=== PATIENT | female | born 1960 | race African-American/Black ===

== ENCOUNTER 2016-10-15 14:30 | Inpatient (IN) | payer MEDICARE, OTHER ==
[~2016-10-15] VITALS: Ht 154.9 cm; Wt 90.4 kg
[~2016-10-15 14:30] MED LIST: ACYC400T PO; ASPI-482 PO; CELE200C PO; CITA40TA12 PO; HYDR-210 PO; PHEN100C PO
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
[2016-10-15 19:15] VITALS: BP 129/87
[2016-10-15] MEDS ORDERED: CYCL-331 PO (19:29)
[2016-10-15] MEDS ORDERED: ACETAMINOPHEN 325 MG TABLET PO PRN (19:45)
[2016-10-15] MEDS: PHENYTOIN SODIUM EXTENDED 100 MG CAPSULE PO SCH (21:37)
[2016-10-15] MEDS: CELECOXIB 200 MG CAPSULE PO SCH (21:37)
[2016-10-15] MEDS: CYCLOBENZAPRINE 10 MG TABLET. PO SCH (21:37)
[2016-10-15 23:15] LABS: BACTERIA,URINE FEW /HPF (0-FEW); BILIRUBIN,URINE NEG (NEG); CLARITY,URINE CLEAR; COLOR,URINE YELLOW; GLUCOSE,URINE NEG (NEG); NITRITE,URINE NEG (NEG); RBC,URINE 0 /HPF (0-2); SQUAMOUS EPITHELIAL CELL,UR FEW /LPF; UROBILINOGEN,URINE 0.2 mg/dL (0.2 mg/dL); WBC,URINE OCC /HPF (0-4)
[2016-10-15 23:23] VITALS: BP 122/65
[2016-10-16 04:59] VITALS: BP 121/80
[2016-10-16 07:29] LABS: BASO % 1 % (0-3); EOS # 0.1 x10^3/uL (0.0-0.7); EOS % 3 % (0-3); HEMATOCRIT 35.8 % (36.0-47.0); HEMOGLOBIN 11.9 g/dL (12.0-15.5); LYMPH # 1.8 x10^3/uL (1.0-4.8); LYMPH % 48 % (24-48); MEAN CORPUSCULAR HEMOGLOBIN 30 pg (25-35); MEAN CORPUSCULAR HGB CONC 33 g/dL (31-37); MEAN CORPUSCULAR VOLUME 90 fL (79-100); MONO # 0.5 x10^3/uL (0.0-1.1); MONO % 14 % (0-9); NEUT # 1.3 x10^3uL (1.8-7.7); NEUT % 35 % (31-73); PLATELET COUNT 187 x10^3/uL (140-400); RED BLOOD COUNT 3.97 x10^6/uL (3.50-5.40); RED CELL DISTRIBUTION WIDTH 13.4 % (11.5-14.5); WHITE BLOOD COUNT 3.8 x10^3/uL (4.0-11.0)
[2016-10-16 07:38] LABS: ALBUMIN 3.3 g/dL (3.4-5.0); CALCIUM 8.4 mg/dL (8.5-10.1); CREATININE 0.6 mg/dL (0.6-1.0); GFR 125.1; POTASSIUM 3.4 mmol/L (3.5-5.1); TOTAL BILIRUBIN 0.2 mg/dL (0.2-1.0); TOTAL PROTEIN 6.7 g/dL (6.4-8.2)
[2016-10-16] MEDS: ASPIRIN ENTERIC COATED 81 MG TABLET.DR. PO SCH (08:20)
[2016-10-16] MEDS: CYCLOBENZAPRINE 10 MG TABLET. PO SCH ×3 (08:20→20:33)
[2016-10-16] MEDS: HYDROcodone/APAP 5/325MG 1 TAB TABLET PO PRN (08:20)
[2016-10-16] MEDS: PHENYTOIN SODIUM EXTENDED 100 MG CAPSULE PO SCH ×4 (08:20→20:33)
[2016-10-16] MEDS: CELECOXIB 200 MG CAPSULE PO SCH ×2 (08:20→20:33)
[2016-10-16 15:46] VITALS: BP 127/77
[2016-10-16 19:18] VITALS: BP 114/76
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
[2016-10-17 05:27] VITALS: BP 103/69
[2016-10-17 06:18] LABS: BASO % 1 % (0-3); EOS # 0.2 x10^3/uL (0.0-0.7); EOS % 4 % (0-3); HEMATOCRIT 34.6 % (36.0-47.0); HEMOGLOBIN 11.6 g/dL (12.0-15.5); LYMPH # 2.2 x10^3/uL (1.0-4.8); LYMPH % 51 % (24-48); MEAN CORPUSCULAR HEMOGLOBIN 30 pg (25-35); MEAN CORPUSCULAR HGB CONC 34 g/dL (31-37); MEAN CORPUSCULAR VOLUME 90 fL (79-100); MONO # 0.6 x10^3/uL (0.0-1.1); MONO % 13 % (0-9); NEUT # 1.4 x10^3uL (1.8-7.7); NEUT % 32 % (31-73); PLATELET COUNT 190 x10^3/uL (140-400); RED BLOOD COUNT 3.86 x10^6/uL (3.50-5.40); RED CELL DISTRIBUTION WIDTH 13.7 % (11.5-14.5); WHITE BLOOD COUNT 4.4 x10^3/uL (4.0-11.0)
[2016-10-17 06:20] LABS: CALCIUM 8.5 mg/dL (8.5-10.1); CREATININE 0.6 mg/dL (0.6-1.0); GFR 125.1; POTASSIUM 3.9 mmol/L (3.5-5.1)
[2016-10-17] MEDS: HYDROcodone/APAP 5/325MG 1 TAB TABLET PO PRN ×2 (08:08→19:45)
[2016-10-17] MEDS: CYCLOBENZAPRINE 10 MG TABLET. PO SCH ×3 (08:47→20:45)
[2016-10-17] MEDS: ASPIRIN ENTERIC COATED 81 MG TABLET.DR. PO SCH (08:48)
[2016-10-17] MEDS: PHENYTOIN SODIUM EXTENDED 100 MG CAPSULE PO SCH ×4 (08:48→20:45)
[2016-10-17] MEDS: CELECOXIB 200 MG CAPSULE PO SCH ×2 (08:48→20:45)
[2016-10-17 11:35] VITALS: BP 111/73
--- NOTE | 2016-10-17 14:33 | OP ---
DATE OF SURGERY: 10/17/2016 INDICATIONS: The patient is still having trouble walking, tremendous weakness in that right leg. The patient otherwise is resting fairly comfortably, making fairly good progress, but still receiving physical and occupational therapy. The patient's labs showed some chronic anemia. Otherwise, she is resting fairly comfortably, making fairly good progress overall. We will continue to monitor the patient with physical and occupational therapy. Consider sending her to the skilled unit. PHYSICAL EXAMINATION: Blood pressure 110/70, respiratory rate 20, pulse 60, afebrile, alert and oriented. Lungs, diminished but clear. CVR exam, regular sinus rhythm, soft. The patient still has marked contractures as noted earlier in the H and P and also weakness in that right leg and some difficulty in talking. Very tearful about going to a longterm. IMPRESSION: Generalized weakness, probable extension of stroke activity with generalized weakness increased in her right arm and right leg with contractures. TERELL ADAME MD DR: ELKE/yaneli JOB#: [id number] / [id number]
[2016-10-17 15:34] VITALS: BP 115/73
[2016-10-17 18:53] VITALS: BP 125/62
[2016-10-18 05:44] VITALS: BP 103/68
[2016-10-18] MEDS: CYCLOBENZAPRINE 10 MG TABLET. PO SCH ×3 (09:26→20:04)
[2016-10-18] MEDS: CELECOXIB 200 MG CAPSULE PO SCH ×2 (09:26→20:04)
[2016-10-18] MEDS: PHENYTOIN SODIUM EXTENDED 100 MG CAPSULE PO SCH ×4 (09:26→20:04)
[2016-10-18] MEDS: ASPIRIN ENTERIC COATED 81 MG TABLET.DR. PO SCH (09:26)
[2016-10-18 11:05] VITALS: BP 112/69
[2016-10-18 19:05] VITALS: BP 127/60
[2016-10-18 22:34] VITALS: BP 115/71
--- NOTE | 2016-10-18 23:00 | PN ---
DATE: 10/18/2016 SUBJECTIVE: The patient is still very weak, still having trouble mobilizing. We will swing her to the swing bed tomorrow. OBJECTIVE: VITAL SIGNS: Blood pressure 100/70, respiratory rate 20, pulse 110, afebrile. GENERAL: The patient is alert and oriented to baseline. LUNGS: Diminished, but clear. CARDIOVASCULAR: Stable. NEUROLOGIC: The patient still with the right arm contracture as well. The patient otherwise seems to be resting fairly comfortably, making fairly good progress overall. PLAN: Continue with PT, OT, and make further evaluation on her as indicated. IMPRESSION: Generalized weakness, CVA, probable extension with right-sided hemiparesis. TERELL ADAME MD DR: ELKE/yaneli JOB#: [id number] / [id number]
[2016-10-19 05:24] VITALS: BP 108/70
[2016-10-19] MEDS: CYCLOBENZAPRINE 10 MG TABLET. PO SCH (08:59)
[2016-10-19] MEDS: CELECOXIB 200 MG CAPSULE PO SCH (08:59)
[2016-10-19] MEDS: ASPIRIN ENTERIC COATED 81 MG TABLET.DR. PO SCH (08:59)
[2016-10-19] MEDS: PHENYTOIN SODIUM EXTENDED 100 MG CAPSULE PO SCH (08:59)
[2016-10-19] MEDS: HYDROcodone/APAP 5/325MG 1 TAB TABLET PO PRN (09:00)
[2016-10-19] MEDS ORDERED: ACET325T9 PO (09:20)
--- NOTE | 2016-10-20 10:27 | RAD ---
Examination: 3 views of the right ankle and right foot History: History of pain. Comparison: Right ankle radiograph from 10/26/2014 Findings: The ankle mortise appears intact. There is mild joint space loss identified in the ankle joint. Osseous mineralization limits evaluation. Mild to moderate degenerative changes identified in the tarsometatarsal joints, metatarsophalangeal joints and interphalangeal joints. Mild soft tissue swelling identified in the medial hindfoot region. Examination limited due to positioning (patient would not cooperate for positioning of the foot). Probable old healed fracture of the distal fifth metatarsal. Impression: 1. No acute osseous findings. 2. Mild soft tissue swelling medial hindfoot. 3. Degenerative changes ankle joint, tarsal joints, metatarsophalangeal joints, interphalangeal joints. MTDD
--- NOTE | 2016-11-17 12:10 | PN ---
DATE: 10/17/2016 INDICATIONS: The patient is still having trouble walking, tremendous weakness in that right leg. The patient otherwise is resting fairly comfortably, making fairly good progress, but still receiving physical and occupational therapy. The patient's labs showed some chronic anemia. Otherwise, she is resting fairly comfortably, making fairly good progress overall. We will continue to monitor the patient with physical and occupational therapy. Consider sending her to the skilled unit. PHYSICAL EXAMINATION: Blood pressure 110/70, respiratory rate 20, pulse 60, afebrile, alert and oriented. Lungs, diminished but clear. CVR exam, regular sinus rhythm, soft. The patient still has marked contractures as noted earlier in the H and P and also weakness in that right leg and some difficulty in talking. Very tearful about going to a jail. IMPRESSION: Generalized weakness, probable extension of stroke activity with generalized weakness increased in her right arm and right leg with contractures. TERELL ADAME MD DR: ELKE/yaneli JOB#: [id number] / [id number]
== END 2016-10-19 11:01 | disposition swing bed (61) | DRG 57 ==
LOC: ER 14:30 → 1 SOUTH 15:12 → OBSVTOIN 10-16 11:02
PROVIDERS: ADMIT Family Medicine; ATTEND Family Medicine
DX: I69.351 Hemiplegia and hemiparesis following cerebral infarction affecting right dominant side (principal); I10 Essential (primary) hypertension; D64.9 Anemia, unspecified; E87.6 Hypokalemia; R26.2 Difficulty in walking, not elsewhere classified
CPT/HCPCS: 36415; 73610; 80048; 80053; 81001; 82947; 85027; 85379; 85651; 87086; G0378; G0379; 97116; 97530; 99285-25

== ENCOUNTER 2016-10-19 11:05 | Inpatient (IN) | payer MEDICARE, OTHER ==
[~2016-10-19] VITALS: Ht 154.9 cm; Wt 92.8 kg
[~2016-10-19 11:05] MED LIST changes: +ACET325T9 PO; +CYCL-331 PO
[2016-10-19] MEDS ORDERED: ACETAMINOPHEN 325 MG TABLET PO PRN (12:45)
[2016-10-19] MEDS: CYCLOBENZAPRINE 10 MG TABLET. PO SCH ×2 (13:23→20:11)
[2016-10-19] MEDS: PHENYTOIN SODIUM EXTENDED 100 MG CAPSULE PO SCH ×3 (13:23→20:11)
[2016-10-19 18:30] VITALS: BP 145/78
[2016-10-19] MEDS: CELECOXIB 200 MG CAPSULE PO SCH (20:11)
[2016-10-20] MEDS: CYCLOBENZAPRINE 10 MG TABLET. PO SCH ×3 (09:00→19:06)
[2016-10-20] MEDS: PHENYTOIN SODIUM EXTENDED 100 MG CAPSULE PO SCH ×4 (09:00→19:06)
[2016-10-20] MEDS: CELECOXIB 200 MG CAPSULE PO SCH ×2 (09:00→19:06)
[2016-10-20] MEDS: ASPIRIN ENTERIC COATED 81 MG TABLET.DR. PO SCH (09:00)
[2016-10-20] MEDS: HYDROcodone/APAP 7.5/325MG 1 TAB TABLET PO SCH (09:00)
[2016-10-20 09:15] VITALS: BP 125/66
[2016-10-20 19:24] VITALS: BP 134/83
[2016-10-20] MEDS ORDERED: MAGNESIUM HYDROXIDE 2,400 MG/30 ML ORAL.SUSP. PO ONE (20:00)
[2016-10-21 05:43] VITALS: BP 102/53
[2016-10-21] MEDS: CELECOXIB 200 MG CAPSULE PO SCH ×2 (08:16→20:07)
[2016-10-21] MEDS: PHENYTOIN SODIUM EXTENDED 100 MG CAPSULE PO SCH ×4 (08:16→20:07)
[2016-10-21] MEDS: ASPIRIN ENTERIC COATED 81 MG TABLET.DR. PO SCH (08:17)
[2016-10-21] MEDS: HYDROcodone/APAP 7.5/325MG 1 TAB TABLET PO SCH (08:17)
[2016-10-21] MEDS: CYCLOBENZAPRINE 10 MG TABLET. PO SCH ×3 (08:17→20:07)
[2016-10-21 19:43] VITALS: BP 145/72
--- NOTE | 2016-10-21 20:09 | PDOC ---
Exam Octaviano Demential Exam: Octaviano Note: Please also refer to the separate dictated note~for this date of service dictated separately.~Patient seen individually. Discussed the patient with Nursing staff reviewed the chart.~Reviewed interim history and current functioning. Reviewed vital signs,~Labs/ Radiology~and current medications noted below. Continue current treatment with the changes noted in the dictated addendum note Assessment: Vital Signs: Vital Signs Date Time Temp Pulse Resp B/P (MAP) Pulse Ox O2 Delivery O2 Flow Rate FiO2 10/21/16 19:43 97.5 79 16 145/72 (96) 98 Room Air I&O Intake and Output 10/21/16 07:00 Intake Total 120 ml Balance 120 ml Intake Oral 120 ml # Voids 7 Current Medications: Meds: Current Medications Acetaminophen (Tylenol) 650 mg PRN Q6HRS PRN PO Headaches, Temp > 101.5F; Start 10/19/16 at 12:45 Aspirin (Aspirin Enteric Coated) 81 mg DAILY PO Last administered on 10/21/16 08:17; Start 10/20/16 at 09:00 Celecoxib (CeleBREX) 200 mg BID PO Last administered on 10/21/16 20:07; Start 10/19/16 at 21:00 Cyclobenzaprine HCl (Flexeril) 10 mg TID PO Last administered on 10/21/16 20: 07; Start 10/19/16 at 14:00 Phenytoin Sodium (Dilantin) 100 mg QID PO Last administered on 10/21/16 20:07 ; Start 10/19/16 at 13:00 Acetaminophen/ Hydrocodone Bitart (Lortab 7.5/325) 1 tab DAILY PO Last administered on 10/21/16 08:17; Start 10/20/16 at 09:00 Magnesium Hydroxide (Milk Of Magnesia) 2,400 mg 1X ONCE PO Last administered on 10/20/16 19:34; Start 10/20/16 at 20:00; Stop 10/20/16 at 20:01; Status DC Active Scripts Active Tylenol (Acetaminophen) 325 Mg Tablet 650 Mg PO PRN Q6HRS PRN Reported Cyclobenzaprine Hcl 10 Mg Tablet 1 Tab PO TID last dose this am next dose this afternoon Aspir 81 (Aspirin) 81 Mg Tablet.dr 81 Mg PO DAILY last dose this am next dose tomorrow am Lortab 7.5-500 Tablet (Hydrocodone Bit/Acetaminophen) 1 Each Tablet 1 Each PO DAILY last dose this am 0900 Celebrex (Celecoxib) 200 Mg Capsule 200 Mg PO BID last dose this am next dose this pm Dilantin (Phenytoin Sodium Extended) 100 Mg Capsule 100 Mg PO QID last dose this am next dose this afternoon RIDDHI HERNDON MD Oct 21, 2016 20:09
[2016-10-22 05:50] VITALS: BP 114/71
[2016-10-22] MEDS: CYCLOBENZAPRINE 10 MG TABLET. PO SCH ×3 (08:08→19:50)
[2016-10-22] MEDS: ASPIRIN ENTERIC COATED 81 MG TABLET.DR. PO SCH (08:08)
[2016-10-22] MEDS: PHENYTOIN SODIUM EXTENDED 100 MG CAPSULE PO SCH ×4 (08:08→19:50)
[2016-10-22] MEDS: CELECOXIB 200 MG CAPSULE PO SCH ×2 (08:08→19:50)
[2016-10-22] MEDS: HYDROcodone/APAP 7.5/325MG 1 TAB TABLET PO SCH (08:08)
[2016-10-22 19:28] VITALS: BP 137/86
--- NOTE | 2016-10-22 19:44 | PDOC ---
Exam Octaviano Demential Exam: Octaviano Note: Please also refer to the separate dictated note~for this date of service dictated separately.~Patient seen individually. Discussed the patient with Nursing staff reviewed the chart.~Reviewed interim history and current functioning. Reviewed vital signs,~Labs/ Radiology~and current medications noted below. Continue current treatment with the changes noted in the dictated addendum note Assessment: Vital Signs: Vital Signs Date Time Temp Pulse Resp B/P (MAP) Pulse Ox O2 Delivery O2 Flow Rate FiO2 10/22/16 19:28 98.1 87 16 137/86 (103) 98 Room Air I&O Intake and Output 10/22/16 07:00 Intake Total 300 ml Balance 300 ml Intake Oral 300 ml # Voids 5 Current Medications: Meds: Current Medications Acetaminophen (Tylenol) 650 mg PRN Q6HRS PRN PO Headaches, Temp > 101.5F; Start 10/19/16 at 12:45 Aspirin (Aspirin Enteric Coated) 81 mg DAILY PO Last administered on 10/22/16 08:08; Start 10/20/16 at 09:00 Celecoxib (CeleBREX) 200 mg BID PO Last administered on 10/22/16 08:08; Start 10/19/16 at 21:00 Cyclobenzaprine HCl (Flexeril) 10 mg TID PO Last administered on 10/22/16 12: 41; Start 10/19/16 at 14:00 Phenytoin Sodium (Dilantin) 100 mg QID PO Last administered on 10/22/16 18:39 ; Start 10/19/16 at 13:00 Acetaminophen/ Hydrocodone Bitart (Lortab 7.5/325) 1 tab DAILY PO Last administered on 10/22/16 08:08; Start 10/20/16 at 09:00 Magnesium Hydroxide (Milk Of Magnesia) 2,400 mg 1X ONCE PO Last administered on 10/20/16 19:34; Start 10/20/16 at 20:00; Stop 10/20/16 at 20:01; Status DC Escitalopram Oxalate (Lexapro) 10 mg DAILY PO ; Start 10/23/16 at 09:00 Active Scripts Active Tylenol (Acetaminophen) 325 Mg Tablet 650 Mg PO PRN Q6HRS PRN Reported Cyclobenzaprine Hcl 10 Mg Tablet 1 Tab PO TID last dose this am next dose this afternoon Aspir 81 (Aspirin) 81 Mg Tablet.dr 81 Mg PO DAILY last dose this am next dose tomorrow am Lortab 7.5-500 Tablet (Hydrocodone Bit/Acetaminophen) 1 Each Tablet 1 Each PO DAILY last dose this am 0900 Celebrex (Celecoxib) 200 Mg Capsule 200 Mg PO BID last dose this am next dose this pm Dilantin (Phenytoin Sodium Extended) 100 Mg Capsule 100 Mg PO QID last dose this am next dose this afternoon Diagnosis: Problems: (1) Acute pain RIDDHI HERNDON MD Oct 22, 2016 19:44
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
[2016-10-23 06:46] VITALS: BP 103/70
[2016-10-23] MEDS: HYDROcodone/APAP 7.5/325MG 1 TAB TABLET PO SCH (08:21)
[2016-10-23] MEDS: ASPIRIN ENTERIC COATED 81 MG TABLET.DR. PO SCH (08:21)
[2016-10-23] MEDS: PHENYTOIN SODIUM EXTENDED 100 MG CAPSULE PO SCH ×4 (08:22→20:07)
[2016-10-23] MEDS: ESCITALOPRAM 10 MG TABLET. PO SCH (08:22)
[2016-10-23] MEDS: CELECOXIB 200 MG CAPSULE PO SCH ×2 (08:22→20:07)
[2016-10-23] MEDS: CYCLOBENZAPRINE 10 MG TABLET. PO SCH ×3 (08:22→20:07)
[2016-10-23] MEDS: POLYETHYLENE GLYCOL 3350 17 GM PACKET. PO PRN (09:58)
[2016-10-23 18:56] VITALS: BP 114/77
--- NOTE | 2016-10-23 19:57 | PDOC ---
Exam Octaviano Demential Exam: Octaviano Note: Please also refer to the separate dictated note~for this date of service dictated separately.~Patient seen individually. Discussed the patient with Nursing staff reviewed the chart.~Reviewed interim history and current functioning. Reviewed vital signs,~Labs/ Radiology~and current medications noted below. Continue current treatment with the changes noted in the dictated addendum note Assessment: Vital Signs: Vital Signs Date Time Temp Pulse Resp B/P (MAP) Pulse Ox O2 Delivery O2 Flow Rate FiO2 10/23/16 18:56 97.7 92 18 114/77 (89) 97 Room Air I&O Intake and Output 10/23/16 07:00 Intake Total 200 ml Output Total 500 ml Balance -300 ml Intake Oral 200 ml Output Urine Total 500 ml # Voids 2 Current Medications: Meds: Current Medications Acetaminophen (Tylenol) 650 mg PRN Q6HRS PRN PO Headaches, Temp > 101.5F; Start 10/19/16 at 12:45 Aspirin (Aspirin Enteric Coated) 81 mg DAILY PO Last administered on 10/23/16 08:21; Start 10/20/16 at 09:00 Celecoxib (CeleBREX) 200 mg BID PO Last administered on 10/23/16 08:22; Start 10/19/16 at 21:00 Cyclobenzaprine HCl (Flexeril) 10 mg TID PO Last administered on 10/23/16 13: 30; Start 10/19/16 at 14:00 Phenytoin Sodium (Dilantin) 100 mg QID PO Last administered on 10/23/16 17:04 ; Start 10/19/16 at 13:00 Acetaminophen/ Hydrocodone Bitart (Lortab 7.5/325) 1 tab DAILY PO Last administered on 10/23/16 08:21; Start 10/20/16 at 09:00 Magnesium Hydroxide (Milk Of Magnesia) 2,400 mg 1X ONCE PO Last administered on 10/20/16 19:34; Start 10/20/16 at 20:00; Stop 10/20/16 at 20:01; Status DC Escitalopram Oxalate (Lexapro) 10 mg DAILY PO Last administered on 10/23/16 08 :22; Start 10/23/16 at 09:00 Polyethylene Glycol (miraLAX) 17 gm PRN DAILY PRN PO CONSTIPATION Last administered on 6/23/17at 09:58; Start 10/23/16 at 10:00 Active Scripts Active Tylenol (Acetaminophen) 325 Mg Tablet 650 Mg PO PRN Q6HRS PRN Reported Cyclobenzaprine Hcl 10 Mg Tablet 1 Tab PO TID last dose this am next dose this afternoon Aspir 81 (Aspirin) 81 Mg Tablet.dr 81 Mg PO DAILY last dose this am next dose tomorrow am Lortab 7.5-500 Tablet (Hydrocodone Bit/Acetaminophen) 1 Each Tablet 1 Each PO DAILY last dose this am 0900 Celebrex (Celecoxib) 200 Mg Capsule 200 Mg PO BID last dose this am next dose this pm Dilantin (Phenytoin Sodium Extended) 100 Mg Capsule 100 Mg PO QID last dose this am next dose this afternoon RIDDHI HERNDON MD Oct 23, 2016 19:57
[2016-10-24 06:17] VITALS: BP 102/55
[2016-10-24] MEDS: ASPIRIN ENTERIC COATED 81 MG TABLET.DR. PO SCH (09:13)
[2016-10-24] MEDS: ESCITALOPRAM 10 MG TABLET. PO SCH (09:14)
[2016-10-24] MEDS: CELECOXIB 200 MG CAPSULE PO SCH ×2 (09:14→20:01)
[2016-10-24] MEDS: PHENYTOIN SODIUM EXTENDED 100 MG CAPSULE PO SCH ×4 (09:14→20:01)
[2016-10-24] MEDS: CYCLOBENZAPRINE 10 MG TABLET. PO SCH ×3 (09:14→20:01)
[2016-10-24] MEDS: POLYETHYLENE GLYCOL 3350 17 GM PACKET. PO PRN (09:43)
[2016-10-24 19:10] VITALS: BP 118/42
--- NOTE | 2016-10-24 20:10 | PN ---
DATE: 10/23/2016 PSYCHIATRIC PROGRESS NOTE This is a late entry of 10/23/2016 covers elements not covered in my initial note of 10/23/2016. SUBJECTIVE: Discussed with nursing staff, reviewed the chart. The patient was seen individually. Overall, the patient is doing better per nursing report. She is still somewhat depressed and admitted to this as I met with her, but was smiling more readily. MENTAL STATUS EXAM: Speech has some latency, often responses monosyllabic as before. Abstraction fair, computation impaired, language function intact. Mood and affect still depressed, but better than before. No suicidal or homicidal ideation. Short-term memory has impairment. LABORATORY DATA: Reviewed. IMPRESSION: Major depressive disorder; anxiety disorder, unspecified; cognitive disorder, unspecified. PLAN: Continue Lexapro 10 mg a day. We may need to augment this with Abilify at a later time if needed, but given her general medical status I draw the weight on it for now. RIDDHI HERNDON MD DR: SUMAYA/yaneli JOB#: [id number] / [id number]
--- NOTE | 2016-10-24 21:59 | PDOC ---
Exam Octaviano Demential Exam: Octaviano Note: Please also refer to the separate dictated note~for this date of service dictated separately.~Patient seen individually. Discussed the patient with Nursing staff reviewed the chart.~Reviewed interim history and current functioning. Reviewed vital signs,~Labs/ Radiology~and current medications noted below. Continue current treatment with the changes noted in the dictated addendum note Assessment: Vital Signs: Vital Signs Date Time Temp Pulse Resp B/P (MAP) Pulse Ox O2 Delivery O2 Flow Rate FiO2 10/24/16 19:10 97.2 85 18 118/42 (67) 100 Room Air I&O Intake and Output 10/24/16 07:00 Intake Total 440 ml Output Total 400 ml Balance 40 ml Intake Oral 440 ml Output Urine Total 400 ml # Voids 4 Current Medications: Meds: Current Medications Acetaminophen (Tylenol) 650 mg PRN Q6HRS PRN PO Headaches, Temp > 101.5F; Start 10/19/16 at 12:45 Aspirin (Aspirin Enteric Coated) 81 mg DAILY PO Last administered on 10/24/16 09:13; Start 10/20/16 at 09:00 Celecoxib (CeleBREX) 200 mg BID PO Last administered on 10/24/16 20:01; Start 10/19/16 at 21:00 Cyclobenzaprine HCl (Flexeril) 10 mg TID PO Last administered on 10/24/16 20: 01; Start 10/19/16 at 14:00 Phenytoin Sodium (Dilantin) 100 mg QID PO Last administered on 10/24/16 20:01 ; Start 10/19/16 at 13:00 Acetaminophen/ Hydrocodone Bitart (Lortab 7.5/325) 1 tab DAILY PO Last administered on 10/23/16 08:21; Start 10/20/16 at 09:00; Stop 10/23/16 at 20:09 ; Status DC Magnesium Hydroxide (Milk Of Magnesia) 2,400 mg 1X ONCE PO Last administered on 10/20/16 19:34; Start 10/20/16 at 20:00; Stop 10/20/16 at 20:01; Status DC Escitalopram Oxalate (Lexapro) 10 mg DAILY PO Last administered on 10/24/16 09 :14; Start 10/23/16 at 09:00 Polyethylene Glycol (miraLAX) 17 gm PRN DAILY PRN PO CONSTIPATION Last administered on 10/24/16 09:43; Start 10/23/16 at 10:00 Acetaminophen/ Hydrocodone Bitart (Lortab 7.5/325) 1 tab PRN Q6HRS PRN PO PAIN ; Start 10/23/16 at 20:15 Active Scripts Active Tylenol (Acetaminophen) 325 Mg Tablet 650 Mg PO PRN Q6HRS PRN Reported Cyclobenzaprine Hcl 10 Mg Tablet 1 Tab PO TID last dose this am next dose this afternoon Aspir 81 (Aspirin) 81 Mg Tablet.dr 81 Mg PO DAILY last dose this am next dose tomorrow am Lortab 7.5-500 Tablet (Hydrocodone Bit/Acetaminophen) 1 Each Tablet 1 Each PO DAILY last dose this am 0900 Celebrex (Celecoxib) 200 Mg Capsule 200 Mg PO BID last dose this am next dose this pm Dilantin (Phenytoin Sodium Extended) 100 Mg Capsule 100 Mg PO QID last dose this am next dose this afternoon RIDDHI HERNDON MD Oct 24, 2016 21:59
[2016-10-25 06:21] VITALS: BP 108/67
[2016-10-25] MEDS: ESCITALOPRAM 10 MG TABLET. PO SCH (08:05)
[2016-10-25] MEDS: CELECOXIB 200 MG CAPSULE PO SCH ×2 (08:05→19:37)
[2016-10-25] MEDS: PHENYTOIN SODIUM EXTENDED 100 MG CAPSULE PO SCH ×4 (08:08→19:37)
[2016-10-25] MEDS: ASPIRIN ENTERIC COATED 81 MG TABLET.DR. PO SCH (08:08)
[2016-10-25] MEDS: POLYETHYLENE GLYCOL 3350 17 GM PACKET. PO PRN (08:09)
[2016-10-25] MEDS: CYCLOBENZAPRINE 10 MG TABLET. PO SCH ×3 (08:09→19:37)
[2016-10-25 18:10] VITALS: BP 97/62
[2016-10-25] MEDS: CALCIUM POLYCARBOPHIL 625 MG TABLET PO SCH (19:36)
--- NOTE | 2016-10-25 21:24 | PDOC ---
Exam Octaviano Demential Exam: Octaviano Note: Please also refer to the separate dictated note~for this date of service dictated separately.~Patient seen individually. Discussed the patient with Nursing staff reviewed the chart.~Reviewed interim history and current functioning. Reviewed vital signs,~Labs/ Radiology~and current medications noted below. Continue current treatment with the changes noted in the dictated addendum note Assessment: Vital Signs: Vital Signs Date Time Temp Pulse Resp B/P (MAP) Pulse Ox O2 Delivery O2 Flow Rate FiO2 10/25/16 19:03 Room Air 10/25/16 18:10 98.1 95 20 97/62 (74) 95 I&O Intake and Output 10/25/16 07:00 Intake Total 300 ml Balance 300 ml Intake Oral 300 ml # Voids 6 Current Medications: Meds: Current Medications Acetaminophen (Tylenol) 650 mg PRN Q6HRS PRN PO Headaches, Temp > 101.5F; Start 10/19/16 at 12:45 Aspirin (Aspirin Enteric Coated) 81 mg DAILY PO Last administered on 10/25/16 08:08; Start 10/20/16 at 09:00 Celecoxib (CeleBREX) 200 mg BID PO Last administered on 10/25/16 19:37; Start 10/19/16 at 21:00 Cyclobenzaprine HCl (Flexeril) 10 mg TID PO Last administered on 10/25/16 19: 37; Start 10/19/16 at 14:00 Phenytoin Sodium (Dilantin) 100 mg QID PO Last administered on 10/25/16 19:37 ; Start 10/19/16 at 13:00 Acetaminophen/ Hydrocodone Bitart (Lortab 7.5/325) 1 tab DAILY PO Last administered on 10/23/16 08:21; Start 10/20/16 at 09:00; Stop 10/23/16 at 20:09 ; Status DC Magnesium Hydroxide (Milk Of Magnesia) 2,400 mg 1X ONCE PO Last administered on 10/20/16 19:34; Start 10/20/16 at 20:00; Stop 10/20/16 at 20:01; Status DC Escitalopram Oxalate (Lexapro) 10 mg DAILY PO Last administered on 10/25/16 08 :05; Start 10/23/16 at 09:00 Polyethylene Glycol (miraLAX) 17 gm PRN DAILY PRN PO CONSTIPATION Last administered on 10/25/16 08:09; Start 10/23/16 at 10:00 Acetaminophen/ Hydrocodone Bitart (Lortab 7.5/325) 1 tab PRN Q6HRS PRN PO PAIN ; Start 10/23/16 at 20:15 Calcium Polycarbophil (Fibercon) 625 mg DAILY PO ; Start 10/26/16 at 20:00; Stop 10/26/16 at 20:00; Status DC Calcium Polycarbophil (Fibercon) 625 mg DAILY PO Last administered on 19:36; Start 10/25/16 at 20:00 Active Scripts Active Tylenol (Acetaminophen) 325 Mg Tablet 650 Mg PO PRN Q6HRS PRN Reported Cyclobenzaprine Hcl 10 Mg Tablet 1 Tab PO TID last dose this am next dose this afternoon Aspir 81 (Aspirin) 81 Mg Tablet.dr 81 Mg PO DAILY last dose this am next dose tomorrow am Lortab 7.5-500 Tablet (Hydrocodone Bit/Acetaminophen) 1 Each Tablet 1 Each PO DAILY last dose this am 0900 Celebrex (Celecoxib) 200 Mg Capsule 200 Mg PO BID last dose this am next dose this pm Dilantin (Phenytoin Sodium Extended) 100 Mg Capsule 100 Mg PO QID last dose this am next dose this afternoon Diagnosis: Problems: (1) Major depressive disorder, recurrent episode (2) Anxiety disorder RIDDHI HERNDON MD Oct 25, 2016 21:24
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
[2016-10-26 05:33] VITALS: BP 112/59
[2016-10-26] MEDS: ASPIRIN ENTERIC COATED 81 MG TABLET.DR. PO SCH (08:28)
[2016-10-26] MEDS: HYDROcodone/APAP 7.5/325MG 1 TAB TABLET PO PRN (08:28)
[2016-10-26] MEDS: CALCIUM POLYCARBOPHIL 625 MG TABLET PO SCH (08:29)
[2016-10-26] MEDS: PHENYTOIN SODIUM EXTENDED 100 MG CAPSULE PO SCH ×4 (08:29→20:33)
[2016-10-26] MEDS: ESCITALOPRAM 10 MG TABLET. PO SCH (08:30)
[2016-10-26] MEDS: CYCLOBENZAPRINE 10 MG TABLET. PO SCH ×3 (08:30→20:32)
[2016-10-26] MEDS: POLYETHYLENE GLYCOL 3350 17 GM PACKET. PO PRN (08:32)
[2016-10-26] MEDS: CELECOXIB 200 MG CAPSULE PO SCH ×2 (08:37→20:33)
[2016-10-26 19:07] VITALS: BP 131/59
[2016-10-26] MEDS ORDERED: CALCIUM POLYCARBOPHIL 625 MG TABLET PO SCH (20:00)
[2016-10-27 08:00] VITALS: BP 133/62
[2016-10-27] MEDS: POLYETHYLENE GLYCOL 3350 17 GM PACKET. PO PRN (08:29)
[2016-10-27] MEDS: CALCIUM POLYCARBOPHIL 625 MG TABLET PO SCH (08:31)
[2016-10-27] MEDS: CYCLOBENZAPRINE 10 MG TABLET. PO SCH ×3 (08:31→20:07)
[2016-10-27] MEDS: ASPIRIN ENTERIC COATED 81 MG TABLET.DR. PO SCH (08:31)
[2016-10-27] MEDS: PHENYTOIN SODIUM EXTENDED 100 MG CAPSULE PO SCH ×4 (08:31→20:07)
[2016-10-27] MEDS: CELECOXIB 200 MG CAPSULE PO SCH ×2 (08:31→20:06)
[2016-10-27] MEDS: ESCITALOPRAM 10 MG TABLET. PO SCH (08:31)
[2016-10-27 19:09] VITALS: BP 116/60
[2016-10-27] MEDS: rOPINIRole 0.5 MG TABLET. PO SCH (20:06)
[2016-10-28 06:25] VITALS: BP 125/61
[2016-10-28] MEDS: POLYETHYLENE GLYCOL 3350 17 GM PACKET. PO PRN (08:26)
[2016-10-28] MEDS: CELECOXIB 200 MG CAPSULE PO SCH ×2 (08:27→20:02)
[2016-10-28] MEDS: PHENYTOIN SODIUM EXTENDED 100 MG CAPSULE PO SCH ×4 (08:27→20:02)
[2016-10-28] MEDS: CYCLOBENZAPRINE 10 MG TABLET. PO SCH ×3 (08:27→20:02)
[2016-10-28] MEDS: rOPINIRole 0.5 MG TABLET. PO SCH ×5 (08:27→20:02)
[2016-10-28] MEDS: ESCITALOPRAM 10 MG TABLET. PO SCH (08:27)
[2016-10-28] MEDS: CALCIUM POLYCARBOPHIL 625 MG TABLET PO SCH (08:27)
[2016-10-28] MEDS: ASPIRIN ENTERIC COATED 81 MG TABLET.DR. PO SCH (08:27)
[2016-10-28 11:07] VITALS: BP 138/68
[2016-10-28] MEDS ORDERED: MAGNESIUM CITRATE 296 ML SOLUTION. PO ONE (17:00)
[2016-10-28 19:42] VITALS: BP 127/57
[2016-10-28] MEDS: HYDROcodone/APAP 7.5/325MG 1 TAB TABLET PO PRN (20:03)
[2016-10-29 05:34] VITALS: BP 135/75
[2016-10-29] MEDS: POLYETHYLENE GLYCOL 3350 17 GM PACKET. PO PRN (08:12)
[2016-10-29] MEDS: PHENYTOIN SODIUM EXTENDED 100 MG CAPSULE PO SCH ×4 (08:14→20:17)
[2016-10-29] MEDS: CALCIUM POLYCARBOPHIL 625 MG TABLET PO SCH (08:14)
[2016-10-29] MEDS: CYCLOBENZAPRINE 10 MG TABLET. PO SCH ×3 (08:14→20:17)
[2016-10-29] MEDS: ESCITALOPRAM 10 MG TABLET. PO SCH (08:14)
[2016-10-29] MEDS: rOPINIRole 0.5 MG TABLET. PO SCH ×3 (08:14→20:16)
[2016-10-29] MEDS: CELECOXIB 200 MG CAPSULE PO SCH ×2 (08:14→20:16)
[2016-10-29] MEDS: ASPIRIN ENTERIC COATED 81 MG TABLET.DR. PO SCH (08:14)
[2016-10-29 14:32] VITALS: BP 130/80
[2016-10-29 18:57] VITALS: BP 136/67
[2016-10-29] MEDS: HYDROcodone/APAP 7.5/325MG 1 TAB TABLET PO PRN (20:16)
[2016-10-30 06:07] VITALS: BP 132/51
[2016-10-30] MEDS: PHENYTOIN SODIUM EXTENDED 100 MG CAPSULE PO SCH ×4 (10:31→20:58)
[2016-10-30] MEDS: ASPIRIN ENTERIC COATED 81 MG TABLET.DR. PO SCH (10:31)
[2016-10-30] MEDS: CELECOXIB 200 MG CAPSULE PO SCH ×2 (10:31→20:58)
[2016-10-30] MEDS: ESCITALOPRAM 10 MG TABLET. PO SCH (10:31)
[2016-10-30] MEDS: CYCLOBENZAPRINE 10 MG TABLET. PO SCH ×3 (10:31→20:58)
[2016-10-30] MEDS: rOPINIRole 0.5 MG TABLET. PO SCH ×3 (10:31→20:58)
[2016-10-30] MEDS: CALCIUM POLYCARBOPHIL 625 MG TABLET PO SCH (10:33)
[2016-10-30 17:54] VITALS: BP 126/74
[2016-10-31 05:43] VITALS: BP 107/61
[2016-10-31] MEDS: CALCIUM POLYCARBOPHIL 625 MG TABLET PO SCH (08:37)
[2016-10-31] MEDS: ASPIRIN ENTERIC COATED 81 MG TABLET.DR. PO SCH (08:37)
[2016-10-31] MEDS: CYCLOBENZAPRINE 10 MG TABLET. PO SCH ×3 (08:37→20:15)
[2016-10-31] MEDS: PHENYTOIN SODIUM EXTENDED 100 MG CAPSULE PO SCH ×4 (08:37→20:16)
[2016-10-31] MEDS: ESCITALOPRAM 10 MG TABLET. PO SCH (08:37)
[2016-10-31] MEDS: CELECOXIB 200 MG CAPSULE PO SCH ×2 (08:37→20:15)
[2016-10-31] MEDS: rOPINIRole 0.5 MG TABLET. PO SCH (08:38)
--- NOTE | 2016-10-31 12:54 | PDOC ---
Exam Octaviano Demential Exam: Octaviano Note: Please also refer to the separate dictated note~for this date of service dictated separately.~Patient seen individually. Discussed the patient with Nursing staff reviewed the chart.~Reviewed interim history and current functioning. Reviewed vital signs,~Labs/ Radiology~and current medications noted below. Continue current treatment with the changes noted in the dictated addendum note Assessment: Vital Signs: Vital Signs Date Time Temp Pulse Resp B/P (MAP) Pulse Ox O2 Delivery O2 Flow Rate FiO2 10/31/16 08:00 Room Air 10/31/16 05:43 98.1 85 20 107/61 (76) 96 I&O Intake and Output 10/31/16 07:00 Intake Total 1360 ml Balance 1360 ml Intake Oral 1360 ml # Voids 2 # Bowel Movements 1 Current Medications: Meds: Current Medications Acetaminophen (Tylenol) 650 mg PRN Q6HRS PRN PO Headaches, Temp > 101.5F; Start 10/19/16 at 12:45 Aspirin (Aspirin Enteric Coated) 81 mg DAILY PO Last administered on 10/31/16 08:37; Start 10/20/16 at 09:00 Celecoxib (CeleBREX) 200 mg BID PO Last administered on 10/31/16 08:37; Start 10/19/16 at 21:00 Cyclobenzaprine HCl (Flexeril) 10 mg TID PO Last administered on 10/31/16 08:37 ; Start 10/19/16 at 14:00 Phenytoin Sodium (Dilantin) 100 mg QID PO Last administered on 10/31/16 08:37; Start 10/19/16 at 13:00 Acetaminophen/ Hydrocodone Bitart (Lortab 7.5/325) 1 tab DAILY PO Last administered on 10/23/16 08:21; Start 10/20/16 at 09:00; Stop 10/23/16 at 20:09 ; Status DC Magnesium Hydroxide (Milk Of Magnesia) 2,400 mg 1X ONCE PO Last administered on 10/20/16 19:34; Start 10/20/16 at 20:00; Stop 10/20/16 at 20:01; Status DC Escitalopram Oxalate (Lexapro) 10 mg DAILY PO Last administered on 10/31/16 08: 37; Start 10/23/16 at 09:00 Polyethylene Glycol (miraLAX) 17 gm PRN DAILY PRN PO CONSTIPATION Last administered on 10/29/16 08:12; Start 10/23/16 at 10:00 Acetaminophen/ Hydrocodone Bitart (Lortab 7.5/325) 1 tab PRN Q6HRS PRN PO PAIN Last administered on 10/29/16 20:16; Start 10/23/16 at 20:15 Calcium Polycarbophil (Fibercon) 625 mg DAILY PO ; Start 10/26/16 at 20:00; Stop 10/26/16 at 20:00; Status DC Calcium Polycarbophil (Fibercon) 625 mg DAILY PO Last administered on 10/31/16 08:37; Start 10/25/16 at 20:00 Ropinirole HCl (Requip) 0.5 mg TID PO Last administered on 10/30/16 10:31; Start 10/27/16 at 21:00; Stop 10/30/16 at 10:48; Status DC Magnesium Citrate (Citroma) 296 ml 1X ONCE PO Last administered on 10/28/16 16:02; Start 10/28/16 at 17:00; Stop 10/28/16 at 17:01; Status DC Ropinirole HCl (Requip) 1 mg TID PO Last administered on 10/31/16 08:38; Start 10/30/16 at 14:00; Stop 10/31/16 at 12:35; Status DC Benztropine Mesylate (Cogentin) 0.5 mg TID PO ; Start 10/31/16 at 14:00 Active Scripts Active Tylenol (Acetaminophen) 325 Mg Tablet 650 Mg PO PRN Q6HRS PRN Reported Cyclobenzaprine Hcl 10 Mg Tablet 1 Tab PO TID last dose this am next dose this afternoon Aspir 81 (Aspirin) 81 Mg Tablet.dr 81 Mg PO DAILY last dose this am next dose tomorrow am Lortab 7.5-500 Tablet (Hydrocodone Bit/Acetaminophen) 1 Each Tablet 1 Each PO DAILY last dose this am 0900 Celebrex (Celecoxib) 200 Mg Capsule 200 Mg PO BID last dose this am next dose this pm Dilantin (Phenytoin Sodium Extended) 100 Mg Capsule 100 Mg PO QID last dose this am next dose this afternoon Diagnosis: Problems: (1) Major depressive disorder, recurrent episode (2) Anxiety disorder RIDDHI HERNDON MD Oct 31, 2016 12:54
[2016-10-31] MEDS: BENZTROPINE MESYLATE 0.5 MG TABLET PO SCH ×2 (13:30→20:16)
[2016-11-01 06:16] VITALS: BP 111/74
[2016-11-01] MEDS: ASPIRIN ENTERIC COATED 81 MG TABLET.DR. PO SCH (09:27)
[2016-11-01] MEDS: PHENYTOIN SODIUM EXTENDED 100 MG CAPSULE PO SCH ×4 (09:27→20:02)
[2016-11-01] MEDS: BENZTROPINE MESYLATE 0.5 MG TABLET PO SCH ×3 (09:27→20:02)
[2016-11-01] MEDS: CALCIUM POLYCARBOPHIL 625 MG TABLET PO SCH (09:27)
[2016-11-01] MEDS: CYCLOBENZAPRINE 10 MG TABLET. PO SCH ×3 (09:27→20:01)
[2016-11-01] MEDS: ESCITALOPRAM 10 MG TABLET. PO SCH (09:27)
[2016-11-01] MEDS: CELECOXIB 200 MG CAPSULE PO SCH ×2 (09:27→20:01)
[2016-11-01] MEDS: HYDROcodone/APAP 7.5/325MG 1 TAB TABLET PO PRN (16:43)
[2016-11-02 06:18] VITALS: BP 119/61
[2016-11-02] MEDS: ASPIRIN ENTERIC COATED 81 MG TABLET.DR. PO SCH (08:21)
[2016-11-02] MEDS: CELECOXIB 200 MG CAPSULE PO SCH ×2 (08:21→20:21)
[2016-11-02] MEDS: CYCLOBENZAPRINE 10 MG TABLET. PO SCH ×3 (08:22→20:21)
[2016-11-02] MEDS: ESCITALOPRAM 10 MG TABLET. PO SCH (08:22)
[2016-11-02] MEDS: PHENYTOIN SODIUM EXTENDED 100 MG CAPSULE PO SCH ×4 (08:22→20:21)
[2016-11-02] MEDS: HYDROcodone/APAP 7.5/325MG 1 TAB TABLET PO PRN ×2 (08:22→18:21)
[2016-11-02] MEDS: BENZTROPINE MESYLATE 0.5 MG TABLET PO SCH ×2 (08:25→13:26)
[2016-11-02] MEDS: CALCIUM POLYCARBOPHIL 625 MG TABLET PO SCH (08:37)
[2016-11-02 17:22] VITALS: BP 155/83
[2016-11-02 18:53] VITALS: BP 159/57
[2016-11-02] MEDS: BENZTROPINE MESYLATE 1 MG TABLET PO SCH (20:21)
--- NOTE | 2016-11-02 20:28 | PDOC ---
Exam Octaviano Demential Exam: Octaviano Note: Please also refer to the separate dictated note~for this date of service dictated separately.~Patient seen individually. Discussed the patient with Nursing staff reviewed the chart.~Reviewed interim history and current functioning. Reviewed vital signs,~Labs/ Radiology~and current medications noted below. Continue current treatment with the changes noted in the dictated addendum note S/O: This is late entry for date of service 10/31/2016. This note covers elements not covered in my initial note. Per nursing report, the patient is doing better. Mood is improved. The patient concurs, but complains of tremors in left hand and she is unsure what this is consequent to. She is tolerating Lexapro 10 mg a day. MSE: Met with the patient in her room. She is reasonably oriented. Speech is coherent, has some latency. Abstraction is fair. Computation is impaired. Language function is intact. No psychotic symptoms, suicidal or homicidal ideation. Mood and affect are improved. Imp: Major depressive disorder, in partial remission; anxiety disorder, unspecified. Plan: Continue Lexapro 10 mg a day from a psychiatric standpoint. No change for now. Assessment: Vital Signs: Vital Signs Date Time Temp Pulse Resp B/P (MAP) Pulse Ox O2 Delivery O2 Flow Rate FiO2 11/02/16 20:17 20 Room Air 11/02/16 18:53 98.3 95 159/57 (91) 100 I&O Intake and Output 11/02/16 07:00 Intake Total 1000 ml Balance 1000 ml Intake Oral 1000 ml # Voids 1 # Bowel Movements 1 Current Medications: Meds: Current Medications Acetaminophen (Tylenol) 650 mg PRN Q6HRS PRN PO Headaches, Temp > 101.5F; Start 10/19/16 at 12:45 Aspirin (Aspirin Enteric Coated) 81 mg DAILY PO Last administered on 11/02/16 08:21; Start 10/20/16 at 09:00 Celecoxib (CeleBREX) 200 mg BID PO Last administered on 11/02/16 20:21; Start 10/19/16 at 21:00 Cyclobenzaprine HCl (Flexeril) 10 mg TID PO Last administered on 11/02/16 20:21 ; Start 10/19/16 at 14:00 Phenytoin Sodium (Dilantin) 100 mg QID PO Last administered on 11/02/16 20:21; Start 10/19/16 at 13:00 Acetaminophen/ Hydrocodone Bitart (Lortab 7.5/325) 1 tab DAILY PO Last administered on 10/23/16 08:21; Start 10/20/16 at 09:00; Stop 10/23/16 at 20:09 ; Status DC Magnesium Hydroxide (Milk Of Magnesia) 2,400 mg 1X ONCE PO Last administered on 10/20/16 19:34; Start 10/20/16 at 20:00; Stop 10/20/16 at 20:01; Status DC Escitalopram Oxalate (Lexapro) 10 mg DAILY PO Last administered on 11/02/16 08: 22; Start 10/23/16 at 09:00 Polyethylene Glycol (miraLAX) 17 gm PRN DAILY PRN PO CONSTIPATION Last administered on 10/29/16 08:12; Start 10/23/16 at 10:00 Acetaminophen/ Hydrocodone Bitart (Lortab 7.5/325) 1 tab PRN Q6HRS PRN PO PAIN Last administered on 11/02/16 18:21; Start 10/23/16 at 20:15 Calcium Polycarbophil (Fibercon) 625 mg DAILY PO ; Start 10/26/16 at 20:00; Stop 10/26/16 at 20:00; Status DC Calcium Polycarbophil (Fibercon) 625 mg DAILY PO Last administered on 11/01/16 09:27; Start 10/25/16 at 20:00 Ropinirole HCl (Requip) 0.5 mg TID PO Last administered on 10/30/16 10:31; Start 10/27/16 at 21:00; Stop 10/30/16 at 10:48; Status DC Magnesium Citrate (Citroma) 296 ml 1X ONCE PO Last administered on 10/28/16 16:02; Start 10/28/16 at 17:00; Stop 10/28/16 at 17:01; Status DC Ropinirole HCl (Requip) 1 mg TID PO Last administered on 10/31/16 08:38; Start 10/30/16 at 14:00; Stop 10/31/16 at 12:35; Status DC Benztropine Mesylate (Cogentin) 0.5 mg TID PO Last administered on 11/02/16 13: 26; Start 10/31/16 at 14:00; Stop 11/02/16 at 17:04; Status DC Benztropine Mesylate (Cogentin) 1 mg BID PO Last administered on 11/02/16 20:21 ; Start 11/02/16 at 21:00 Active Scripts Active Tylenol (Acetaminophen) 325 Mg Tablet 650 Mg PO PRN Q6HRS PRN Reported Cyclobenzaprine Hcl 10 Mg Tablet 1 Tab PO TID last dose this am next dose this afternoon Aspir 81 (Aspirin) 81 Mg Tablet.dr 81 Mg PO DAILY last dose this am next dose tomorrow am Lortab 7.5-500 Tablet (Hydrocodone Bit/Acetaminophen) 1 Each Tablet 1 Each PO DAILY last dose this am 0900 Celebrex (Celecoxib) 200 Mg Capsule 200 Mg PO BID last dose this am next dose this pm Dilantin (Phenytoin Sodium Extended) 100 Mg Capsule 100 Mg PO QID last dose this am next dose this afternoon RIDDHI HERNDON MD Nov 02, 2016 20:28
--- NOTE | 2016-11-02 21:54 | PDOC ---
PROGRESS NOTES Diagnosis DIAGNOSIS tremor of the left hand Assessment resting tremor of the left hand PLAN continue with current management and change benztropine to 1 mg po bid Subjective patient has had resting tremor of the right hand for several months the tremor usually aggravated by stress nad anxiety Objective Vital Signs Date Time Temp Pulse Resp B/P (MAP) Pulse Ox O2 Delivery O2 Flow Rate FiO2 11/02/16 20:17 20 Room Air 11/02/16 18:53 98.3 95 159/57 (91) 100 Intake and Output 11/02/16 07:00 Intake Total 1000 ml Balance 1000 ml Intake Oral 1000 ml # Voids 1 # Bowel Movements 1 Physical Exam Physical Examination: General: Well-developed, well-nourished, AF, in no acute distress.. HEENT: normocephalic , atraumatic, otherwise unremarkable. Neck: supple, negative for JVD, carotid bruit, lymphoadenopathy or thyroidomegaly. Lungs: clear. Cardiovascular: normal S1, S2 without murmur. Abdomen: soft, no tenderness, mass or organomegaly. Extremities: no edema, clubbing or cyanosis. The peripheral pulses were normal. Neurological Examination: 1-Mental status: alert and oriented to time x3. The speech was fluent. There were no language dysfunctions. Memory: the patient recalls 2-3 objects after 1 and 3 minutes. Judgment and abstracting thinking were intact. Mood: non- depressed at this time. The patient denies hallucination, delusion or suicidal ideation. 2-Cranial Nerves: Visual messer were full. The pupils were equal and reactive to light and accommodation. The extra ocular movements were intact; there was no nystagmus on horizontal or vertical gazes. Fundoscopic exam revealed no retinal bleeding or papilledma. There were no facial, motor or sensory deficits. The hearing was intact. The palate was elevated symmetrically. The sternocleidomastoids were powerful bilaterally. The patient protruded the tongue in the midline without fasciculations or atrophy. 3- Motor Examination: No focal muscle bulk wasting. patient has right hemiplegia more prominent in the upper extremity with contraction at the wrist. 4- Sensory Examination: Normal pinprick, light touch, vibratory, and position senses. 5- Deep Tendon Reflexes: Were symmetric and active with hyperflxia on the right and upper extremities 6-Coordinations and Gait: uses a wc for ambulation. Review of Relevant I have reviewed the following items hailey (where applicable) has been applied. Medications Current Medications Acetaminophen (Tylenol) 650 mg PRN Q6HRS PRN PO Headaches, Temp > 101.5F; Start 10/19/16 at 12:45 Aspirin (Aspirin Enteric Coated) 81 mg DAILY PO Last administered on 11/02/16 08:21; Start 10/20/16 at 09:00 Celecoxib (CeleBREX) 200 mg BID PO Last administered on 11/02/16 20:21; Start 10/19/16 at 21:00 Cyclobenzaprine HCl (Flexeril) 10 mg TID PO Last administered on 11/02/16 20:21 ; Start 10/19/16 at 14:00 Phenytoin Sodium (Dilantin) 100 mg QID PO Last administered on 11/02/16 20:21; Start 10/19/16 at 13:00 Acetaminophen/ Hydrocodone Bitart (Lortab 7.5/325) 1 tab DAILY PO Last administered on 10/23/16 08:21; Start 10/20/16 at 09:00; Stop 10/23/16 at 20:09 ; Status DC Magnesium Hydroxide (Milk Of Magnesia) 2,400 mg 1X ONCE PO Last administered on 10/20/16 19:34; Start 10/20/16 at 20:00; Stop 10/20/16 at 20:01; Status DC Escitalopram Oxalate (Lexapro) 10 mg DAILY PO Last administered on 11/02/16 08: 22; Start 10/23/16 at 09:00 Polyethylene Glycol (miraLAX) 17 gm PRN DAILY PRN PO CONSTIPATION Last administered on 10/29/16 08:12; Start 10/23/16 at 10:00 Acetaminophen/ Hydrocodone Bitart (Lortab 7.5/325) 1 tab PRN Q6HRS PRN PO PAIN Last administered on 11/02/16 18:21; Start 10/23/16 at 20:15 Calcium Polycarbophil (Fibercon) 625 mg DAILY PO ; Start 10/26/16 at 20:00; Stop 10/26/16 at 20:00; Status DC Calcium Polycarbophil (Fibercon) 625 mg DAILY PO Last administered on 11/01/16 09:27; Start 10/25/16 at 20:00 Ropinirole HCl (Requip) 0.5 mg TID PO Last administered on 10/30/16 10:31; Start 10/27/16 at 21:00; Stop 10/30/16 at 10:48; Status DC Magnesium Citrate (Citroma) 296 ml 1X ONCE PO Last administered on 10/28/16 16:02; Start 10/28/16 at 17:00; Stop 10/28/16 at 17:01; Status DC Ropinirole HCl (Requip) 1 mg TID PO Last administered on 10/31/16 08:38; Start 10/30/16 at 14:00; Stop 10/31/16 at 12:35; Status DC Benztropine Mesylate (Cogentin) 0.5 mg TID PO Last administered on 11/02/16 13: 26; Start 10/31/16 at 14:00; Stop 11/02/16 at 17:04; Status DC Benztropine Mesylate (Cogentin) 1 mg BID PO Last administered on 11/02/16 20:21 ; Start 11/02/16 at 21:00 Active Scripts Active Tylenol (Acetaminophen) 325 Mg Tablet 650 Mg PO PRN Q6HRS PRN Reported Cyclobenzaprine Hcl 10 Mg Tablet 1 Tab PO TID last dose this am next dose this afternoon Aspir 81 (Aspirin) 81 Mg Tablet.dr 81 Mg PO DAILY last dose this am next dose tomorrow am Lortab 7.5-500 Tablet (Hydrocodone Bit/Acetaminophen) 1 Each Tablet 1 Each PO DAILY last dose this am 0900 Celebrex (Celecoxib) 200 Mg Capsule 200 Mg PO BID last dose this am next dose this pm Dilantin (Phenytoin Sodium Extended) 100 Mg Capsule 100 Mg PO QID last dose this am next dose this afternoon Vitals/I & O Vital Sign - Last 24 Hours 11/02/16 11/02/16 11/02/16 11/02/16 06:18 08:22 08:38 09:30 Temp 97.9 Pulse 80 Resp 17 20 B/P (MAP) 119/61 (80) Pulse Ox 100 100 100 O2 Delivery Room Air Room Air Room Air 11/02/16 11/02/16 11/02/16 11/02/16 17:22 18:21 18:53 19:40 Temp 98.4 98.3 Pulse 84 95 Resp 20 20 16 B/P (MAP) 155/83 (107) 159/57 (91) Pulse Ox 97 97 100 O2 Delivery Room Air Room Air Room Air Room Air 11/02/16 20:17 Resp 20 O2 Delivery Room Air Intake and Output 11/01/16 11/01/16 11/02/16 15:00 23:00 07:00 Intake Total 1000 ml Balance 1000 ml Vj YOON MD Nov 02, 2016 21:54
[2016-11-03 05:39] VITALS: BP 110/83
[2016-11-03] MEDS: CELECOXIB 200 MG CAPSULE PO SCH ×2 (08:57→21:07)
[2016-11-03] MEDS: ASPIRIN ENTERIC COATED 81 MG TABLET.DR. PO SCH (08:57)
[2016-11-03] MEDS: CALCIUM POLYCARBOPHIL 625 MG TABLET PO SCH (08:57)
[2016-11-03] MEDS: ESCITALOPRAM 10 MG TABLET. PO SCH (08:57)
[2016-11-03] MEDS: CYCLOBENZAPRINE 10 MG TABLET. PO SCH ×3 (08:57→21:07)
[2016-11-03] MEDS: PHENYTOIN SODIUM EXTENDED 100 MG CAPSULE PO SCH ×4 (08:57→21:07)
[2016-11-03] MEDS: BENZTROPINE MESYLATE 1 MG TABLET PO SCH ×2 (08:58→21:08)
[2016-11-03 09:13] VITALS: BP 121/59
--- NOTE | 2016-11-03 13:28 | PDOC ---
PROGRESS NOTES Diagnosis DIAGNOSIS tremor of the left hand Assessment resting and postural and kinetic tremor of the left hand, h/o seizure, htn, anxiety and depression PLAN contiue with benztropine at 1 mg bid Subjective the patient has had intermittent tremor of the right hand induced by anxiety and activities using left hand Objective Vital Signs Date Time Temp Pulse Resp B/P (MAP) Pulse Ox O2 Delivery O2 Flow Rate FiO2 11/03/16 09:13 98.2 87 20 121/59 (79) 98 Room Air Intake and Output 11/03/16 07:00 Intake Total 1930 ml Balance 1930 ml Intake Oral 1930 ml # Voids 4 # Bowel Movements 2 Physical Exam wd/wn af nad heent nc/at neck supple lungs clear cv rrr nl s1,s2 abdomen soft extremities neg for cyanosis,clubing or edema. 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 Medications Current Medications Acetaminophen (Tylenol) 650 mg PRN Q6HRS PRN PO Headaches, Temp > 101.5F; Start 10/19/16 at 12:45 Aspirin (Aspirin Enteric Coated) 81 mg DAILY PO Last administered on 11/03/16 08:57; Start 10/20/16 at 09:00 Celecoxib (CeleBREX) 200 mg BID PO Last administered on 11/03/16 08:57; Start 10/19/16 at 21:00 Cyclobenzaprine HCl (Flexeril) 10 mg TID PO Last administered on 11/03/16 08:57 ; Start 10/19/16 at 14:00 Phenytoin Sodium (Dilantin) 100 mg QID PO Last administered on 11/03/16 08:57; Start 10/19/16 at 13:00 Acetaminophen/ Hydrocodone Bitart (Lortab 7.5/325) 1 tab DAILY PO Last administered on 10/23/16 08:21; Start 10/20/16 at 09:00; Stop 10/23/16 at 20:09 ; Status DC Magnesium Hydroxide (Milk Of Magnesia) 2,400 mg 1X ONCE PO Last administered on 10/20/16 19:34; Start 10/20/16 at 20:00; Stop 10/20/16 at 20:01; Status DC Escitalopram Oxalate (Lexapro) 10 mg DAILY PO Last administered on 11/03/16 08: 57; Start 10/23/16 at 09:00 Polyethylene Glycol (miraLAX) 17 gm PRN DAILY PRN PO CONSTIPATION Last administered on 10/29/16 08:12; Start 10/23/16 at 10:00 Acetaminophen/ Hydrocodone Bitart (Lortab 7.5/325) 1 tab PRN Q6HRS PRN PO PAIN Last administered on 11/02/16 18:21; Start 10/23/16 at 20:15 Calcium Polycarbophil (Fibercon) 625 mg DAILY PO ; Start 10/26/16 at 20:00; Stop 10/26/16 at 20:00; Status DC Calcium Polycarbophil (Fibercon) 625 mg DAILY PO Last administered on 11/03/16 08:57; Start 10/25/16 at 20:00 Ropinirole HCl (Requip) 0.5 mg TID PO Last administered on 10/30/16 10:31; Start 10/27/16 at 21:00; Stop 10/30/16 at 10:48; Status DC Magnesium Citrate (Citroma) 296 ml 1X ONCE PO Last administered on 10/28/16 16:02; Start 10/28/16 at 17:00; Stop 10/28/16 at 17:01; Status DC Ropinirole HCl (Requip) 1 mg TID PO Last administered on 10/31/16 08:38; Start 10/30/16 at 14:00; Stop 10/31/16 at 12:35; Status DC Benztropine Mesylate (Cogentin) 0.5 mg TID PO Last administered on 11/02/16 13: 26; Start 10/31/16 at 14:00; Stop 11/02/16 at 17:04; Status DC Benztropine Mesylate (Cogentin) 1 mg BID PO Last administered on 11/03/16 08:58 ; Start 11/02/16 at 21:00 Active Scripts Active Tylenol (Acetaminophen) 325 Mg Tablet 650 Mg PO PRN Q6HRS PRN Reported Cyclobenzaprine Hcl 10 Mg Tablet 1 Tab PO TID last dose this am next dose this afternoon Aspir 81 (Aspirin) 81 Mg Tablet.dr 81 Mg PO DAILY last dose this am next dose tomorrow am Lortab 7.5-500 Tablet (Hydrocodone Bit/Acetaminophen) 1 Each Tablet 1 Each PO DAILY last dose this am 0900 Celebrex (Celecoxib) 200 Mg Capsule 200 Mg PO BID last dose this am next dose this pm Dilantin (Phenytoin Sodium Extended) 100 Mg Capsule 100 Mg PO QID last dose this am next dose this afternoon Vitals/I & O Vital Sign - Last 24 Hours 11/02/16 11/02/16 11/02/16 11/02/16 17:22 18:21 18:53 19:40 Temp 98.4 98.3 Pulse 84 95 Resp 20 20 16 B/P (MAP) 155/83 (107) 159/57 (91) Pulse Ox 97 97 100 O2 Delivery Room Air Room Air Room Air Room Air 11/02/16 11/03/16 11/03/16 20:17 05:39 09:13 Temp 98.0 98.2 Pulse 96 87 Resp 20 20 20 B/P (MAP) 110/83 (92) 121/59 (79) Pulse Ox 99 98 O2 Delivery Room Air Room Air Room Air Intake and Output 11/02/16 11/02/16 11/03/16 15:00 23:00 07:00 Intake Total 1000 ml 680 ml 250 ml Balance 1000 ml 680 ml 250 ml Vj YOON MD Nov 03, 2016 13:28
[2016-11-03] MEDS: HYDROcodone/APAP 7.5/325MG 1 TAB TABLET PO PRN ×3 (15:03→21:08)
[2016-11-03 19:22] VITALS: BP 151/67
--- NOTE | 2016-11-03 20:58 | PDOC ---
Exam Octaviano Demential Exam: Octaviano Note: Please also refer to the separate dictated note~for this date of service dictated separately.~Patient seen individually. Discussed the patient with Nursing staff reviewed the chart.~Reviewed interim history and current functioning. Reviewed vital signs,~Labs/ Radiology~and current medications noted below. Continue current treatment with the changes noted in the dictated addendum note Assessment: Vital Signs: Vital Signs Date Time Temp Pulse Resp B/P (MAP) Pulse Ox O2 Delivery O2 Flow Rate FiO2 11/03/16 19:22 98.3 92 20 151/67 (95) 96 Room Air I&O Intake and Output 11/03/16 07:00 Intake Total 1930 ml Balance 1930 ml Intake Oral 1930 ml # Voids 4 # Bowel Movements 2 Current Medications: Meds: Current Medications Acetaminophen (Tylenol) 650 mg PRN Q6HRS PRN PO Headaches, Temp > 101.5F; Start 10/19/16 at 12:45 Aspirin (Aspirin Enteric Coated) 81 mg DAILY PO Last administered on 11/03/16 08:57; Start 10/20/16 at 09:00 Celecoxib (CeleBREX) 200 mg BID PO Last administered on 11/03/16 08:57; Start 10/19/16 at 21:00 Cyclobenzaprine HCl (Flexeril) 10 mg TID PO Last administered on 11/03/16 13:50 ; Start 10/19/16 at 14:00 Phenytoin Sodium (Dilantin) 100 mg QID PO Last administered on 11/03/16 17:02; Start 10/19/16 at 13:00 Acetaminophen/ Hydrocodone Bitart (Lortab 7.5/325) 1 tab DAILY PO Last administered on 10/23/16 08:21; Start 10/20/16 at 09:00; Stop 10/23/16 at 20:09 ; Status DC Magnesium Hydroxide (Milk Of Magnesia) 2,400 mg 1X ONCE PO Last administered on 10/20/16 19:34; Start 10/20/16 at 20:00; Stop 10/20/16 at 20:01; Status DC Escitalopram Oxalate (Lexapro) 10 mg DAILY PO Last administered on 11/03/16 08: 57; Start 10/23/16 at 09:00 Polyethylene Glycol (miraLAX) 17 gm PRN DAILY PRN PO CONSTIPATION Last administered on 10/29/16 08:12; Start 10/23/16 at 10:00 Acetaminophen/ Hydrocodone Bitart (Lortab 7.5/325) 1 tab PRN Q6HRS PRN PO PAIN Last administered on 11/03/16 15:03; Start 10/23/16 at 20:15 Calcium Polycarbophil (Fibercon) 625 mg DAILY PO ; Start 10/26/16 at 20:00; Stop 10/26/16 at 20:00; Status DC Calcium Polycarbophil (Fibercon) 625 mg DAILY PO Last administered on 11/03/16 08:57; Start 10/25/16 at 20:00 Ropinirole HCl (Requip) 0.5 mg TID PO Last administered on 10/30/16 10:31; Start 10/27/16 at 21:00; Stop 10/30/16 at 10:48; Status DC Magnesium Citrate (Citroma) 296 ml 1X ONCE PO Last administered on 10/28/16 16:02; Start 10/28/16 at 17:00; Stop 10/28/16 at 17:01; Status DC Ropinirole HCl (Requip) 1 mg TID PO Last administered on 10/31/16 08:38; Start 10/30/16 at 14:00; Stop 10/31/16 at 12:35; Status DC Benztropine Mesylate (Cogentin) 0.5 mg TID PO Last administered on 11/02/16 13: 26; Start 10/31/16 at 14:00; Stop 11/02/16 at 17:04; Status DC Benztropine Mesylate (Cogentin) 1 mg BID PO Last administered on 11/03/16 08:58 ; Start 11/02/16 at 21:00 Active Scripts Active Tylenol (Acetaminophen) 325 Mg Tablet 650 Mg PO PRN Q6HRS PRN Reported Cyclobenzaprine Hcl 10 Mg Tablet 1 Tab PO TID last dose this am next dose this afternoon Aspir 81 (Aspirin) 81 Mg Tablet.dr 81 Mg PO DAILY last dose this am next dose tomorrow am Lortab 7.5-500 Tablet (Hydrocodone Bit/Acetaminophen) 1 Each Tablet 1 Each PO DAILY last dose this am 0900 Celebrex (Celecoxib) 200 Mg Capsule 200 Mg PO BID last dose this am next dose this pm Dilantin (Phenytoin Sodium Extended) 100 Mg Capsule 100 Mg PO QID last dose this am next dose this afternoon Diagnosis: Problems: (1) Major depressive disorder, recurrent episode (2) Anxiety disorder RIDDHI HERNDON MD Nov 03, 2016 20:58
[2016-11-04 06:19] VITALS: BP 136/69
[2016-11-04] MEDS: PHENYTOIN SODIUM EXTENDED 100 MG CAPSULE PO SCH ×4 (08:57→20:17)
[2016-11-04] MEDS: CELECOXIB 200 MG CAPSULE PO SCH ×2 (08:57→20:16)
[2016-11-04] MEDS: BENZTROPINE MESYLATE 1 MG TABLET PO SCH ×2 (08:57→20:16)
[2016-11-04] MEDS: ESCITALOPRAM 10 MG TABLET. PO SCH (08:57)
[2016-11-04] MEDS: CYCLOBENZAPRINE 10 MG TABLET. PO SCH ×3 (08:57→20:16)
[2016-11-04] MEDS: ASPIRIN ENTERIC COATED 81 MG TABLET.DR. PO SCH (08:58)
[2016-11-04] MEDS: CALCIUM POLYCARBOPHIL 625 MG TABLET PO SCH (09:00)
[2016-11-04 20:00] VITALS: BP 127/65
[2016-11-04] MEDS: HYDROcodone/APAP 7.5/325MG 1 TAB TABLET PO PRN (20:16)
[2016-11-05 05:30] VITALS: BP 131/62
[2016-11-05 08:00] VITALS: BP 135/81
[2016-11-05] MEDS: CELECOXIB 200 MG CAPSULE PO SCH ×2 (08:11→19:46)
[2016-11-05] MEDS: ESCITALOPRAM 10 MG TABLET. PO SCH (08:11)
[2016-11-05] MEDS: PHENYTOIN SODIUM EXTENDED 100 MG CAPSULE PO SCH ×4 (08:11→19:46)
[2016-11-05] MEDS: CYCLOBENZAPRINE 10 MG TABLET. PO SCH ×3 (08:11→19:46)
[2016-11-05] MEDS: BENZTROPINE MESYLATE 1 MG TABLET PO SCH ×3 (08:11→19:47)
[2016-11-05] MEDS: ASPIRIN ENTERIC COATED 81 MG TABLET.DR. PO SCH (08:11)
[2016-11-05] MEDS: HYDROcodone/APAP 7.5/325MG 1 TAB TABLET PO PRN (08:12)
[2016-11-05] MEDS: CALCIUM POLYCARBOPHIL 625 MG TABLET PO SCH (08:24)
--- NOTE | 2016-11-05 10:02 | PDOC ---
SUBJECTIVE: continue to have resting tremor of the left hand which is slightly decrease by motion of the left upper extremity. she denies any new neurological complaints. OBJECTIVE: Well-developed, well-nourished, AF, in no acute distress.. HEENT: normocephalic , atraumatic, otherwise unremarkable. Neck: supple, negative for JVD, carotid bruit, lymphoadenopathy or thyroidomegaly. Lungs: clear. Cardiovascular: normal S1, S2 without murmur. Abdomen: soft, no tenderness, mass or organomegaly. Extremities: no edema, clubbing or cyanosis. The peripheral pulses were normal. Neurological Examination: 1-Mental status: alert and oriented to time x3. The speech was fluent. There were no language dysfunctions. Memory: the patient recalls 2-3 objects after 1 and 3 minutes. Judgment and abstracting thinking were intact. Mood: non- depressed at this time. The patient denies hallucination, delusion or suicidal ideation. 2-Cranial Nerves: Visual messer were full. The pupils were equal and reactive to light and accommodation. The extra ocular movements were intact; there was no nystagmus on horizontal or vertical gazes. Fundoscopic exam revealed no retinal bleeding or papilledma. There were no facial, motor or sensory deficits. The hearing was intact. The palate was elevated symmetrically. The sternocleidomastoids were powerful bilaterally. The patient protruded the tongue in the midline without fasciculations or atrophy. 3- Motor Examination: No focal muscle bulk wasting. patient has right hemiplegia more prominent in the upper extremity with contraction at the wrist. resting tremor of the right hand. 4- Sensory Examination: Normal pinprick, light touch, vibratory, and position senses. 5- Deep Tendon Reflexes: Were symmetric and active with hyperflxia on the right and upper extremities 6-Coordinations and Gait: uses a wc for ambulation. 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 2- s/p stroke with right hemiplegia 3- depression and anxiety PLAN: continue with current medications and increase benztropine to 1 mg tid follow up with dr yoon after two weeks. Vj YOON MD Nov 05, 2016 10:01
[2016-11-05 18:56] VITALS: BP 153/94
--- NOTE | 2016-11-05 21:06 | PDOC ---
Exam Octaviano Demential Exam: Octaviano Note: Please also refer to the separate dictated note~for this date of service dictated separately.~Patient seen individually. Discussed the patient with Nursing staff reviewed the chart.~Reviewed interim history and current functioning. Reviewed vital signs,~Labs/ Radiology~and current medications noted below. Continue current treatment with the changes noted in the dictated addendum note DATE OF SERVICE: 11/03/2016. PSYCHIATRIC PROGRESS NOTE This is a late entry for Date of Service 11/03/2016. The patient seen individually on rounds the evening of 11/03/2016. Discussed with nursing staff. Reviewed the chart. Met with the patient evening of 11/03/2016. Per nursing report she is doing better. She is cooperative with her physical therapy and other activities. Mood appears better more awake during the day. REVIEW OF SYSTEMS Impaired ambulation. No CV, , pulmonary, eye systems symptoms on review. MENTAL STATUS EXAM: Reasonably oriented. Speech coherent, has some latency. Abstraction fair. Computation impaired. Mood and affect has improved. No suicidal or homicidal ideation. LABS: Reviewed. IMPRESSION: Unchanged from initial note. PLAN: Continue current psychotropics as mentioned in my initial note. Assessment: Vital Signs: Vital Signs Date Time Temp Pulse Resp B/P (MAP) Pulse Ox O2 Delivery O2 Flow Rate FiO2 11/05/16 19:50 Room Air 11/05/16 18:56 98.0 88 20 153/94 (113) 97 I&O Intake and Output 11/05/16 07:00 Intake Total 2700 ml Balance 2700 ml Intake Oral 2700 ml # Voids 11 # Bowel Movements 2 Current Medications: Meds: Current Medications Acetaminophen (Tylenol) 650 mg PRN Q6HRS PRN PO Headaches, Temp > 101.5F; Start 10/19/16 at 12:45 Aspirin (Aspirin Enteric Coated) 81 mg DAILY PO Last administered on 11/05/16 08:11; Start 10/20/16 at 09:00 Celecoxib (CeleBREX) 200 mg BID PO Last administered on 11/05/16 19:46; Start 10/19/16 at 21:00 Cyclobenzaprine HCl (Flexeril) 10 mg TID PO Last administered on 11/05/16 19:46 ; Start 10/19/16 at 14:00 Phenytoin Sodium (Dilantin) 100 mg QID PO Last administered on 11/05/16 19:46; Start 10/19/16 at 13:00 Acetaminophen/ Hydrocodone Bitart (Lortab 7.5/325) 1 tab DAILY PO Last administered on 10/23/16 08:21; Start 10/20/16 at 09:00; Stop 10/23/16 at 20:09 ; Status DC Magnesium Hydroxide (Milk Of Magnesia) 2,400 mg 1X ONCE PO Last administered on 10/20/16 19:34; Start 10/20/16 at 20:00; Stop 10/20/16 at 20:01; Status DC Escitalopram Oxalate (Lexapro) 10 mg DAILY PO Last administered on 11/05/16 08: 11; Start 10/23/16 at 09:00 Polyethylene Glycol (miraLAX) 17 gm PRN DAILY PRN PO CONSTIPATION Last administered on 10/29/16 08:12; Start 10/23/16 at 10:00 Acetaminophen/ Hydrocodone Bitart (Lortab 7.5/325) 1 tab PRN Q6HRS PRN PO PAIN Last administered on 11/05/16 08:12; Start 10/23/16 at 20:15 Calcium Polycarbophil (Fibercon) 625 mg DAILY PO ; Start 10/26/16 at 20:00; Stop 10/26/16 at 20:00; Status DC Calcium Polycarbophil (Fibercon) 625 mg DAILY PO Last administered on 11/03/16 08:57; Start 10/25/16 at 20:00 Ropinirole HCl (Requip) 0.5 mg TID PO Last administered on 10/30/16 10:31; Start 10/27/16 at 21:00; Stop 10/30/16 at 10:48; Status DC Magnesium Citrate (Citroma) 296 ml 1X ONCE PO Last administered on 10/28/16 16:02; Start 10/28/16 at 17:00; Stop 10/28/16 at 17:01; Status DC Ropinirole HCl (Requip) 1 mg TID PO Last administered on 10/31/16 08:38; Start 10/30/16 at 14:00; Stop 10/31/16 at 12:35; Status DC Benztropine Mesylate (Cogentin) 0.5 mg TID PO Last administered on 11/02/16 13: 26; Start 10/31/16 at 14:00; Stop 11/02/16 at 17:04; Status DC Benztropine Mesylate (Cogentin) 1 mg BID PO Last administered on 11/05/16 08:11 ; Start 11/02/16 at 21:00; Stop 11/05/16 at 10:05; Status DC Benztropine Mesylate (Cogentin) 1 mg TID PO Last administered on 11/05/16 19:47 ; Start 11/05/16 at 14:00 Active Scripts Active Tylenol (Acetaminophen) 325 Mg Tablet 650 Mg PO PRN Q6HRS PRN Reported Cyclobenzaprine Hcl 10 Mg Tablet 1 Tab PO TID last dose this am next dose this afternoon Aspir 81 (Aspirin) 81 Mg Tablet.dr 81 Mg PO DAILY last dose this am next dose tomorrow am Lortab 7.5-500 Tablet (Hydrocodone Bit/Acetaminophen) 1 Each Tablet 1 Each PO DAILY last dose this am 0900 Celebrex (Celecoxib) 200 Mg Capsule 200 Mg PO BID last dose this am next dose this pm Dilantin (Phenytoin Sodium Extended) 100 Mg Capsule 100 Mg PO QID last dose this am next dose this afternoon RIDDHI HERNDON MD Nov 05, 2016 21:06
[2016-11-06 05:07] LABS: BACTERIA,URINE 0 /HPF (0-FEW); BILIRUBIN,URINE NEG (NEG); CLARITY,URINE CLEAR; COLOR,URINE YELLOW; GLUCOSE,URINE NEG (NEG); NITRITE,URINE NEG (NEG); RBC,URINE 0 /HPF (0-2); UROBILINOGEN,URINE 0.2 mg/dL (0.2 mg/dL); WBC,URINE OCC /HPF (0-4)
[2016-11-06 05:08] LABS: SQUAMOUS EPITHELIAL CELL,UR FEW /LPF
[2016-11-06 06:01] VITALS: BP 135/78
[2016-11-06] MEDS: ASPIRIN ENTERIC COATED 81 MG TABLET.DR. PO SCH (08:03)
[2016-11-06] MEDS: ESCITALOPRAM 10 MG TABLET. PO SCH (08:03)
[2016-11-06] MEDS: PHENYTOIN SODIUM EXTENDED 100 MG CAPSULE PO SCH ×3 (08:03→16:55)
[2016-11-06] MEDS: CYCLOBENZAPRINE 10 MG TABLET. PO SCH ×2 (08:03→13:26)
[2016-11-06] MEDS: CELECOXIB 200 MG CAPSULE PO SCH (08:03)
[2016-11-06] MEDS: BENZTROPINE MESYLATE 1 MG TABLET PO SCH ×2 (08:03→13:26)
[2016-11-06] MEDS: CALCIUM POLYCARBOPHIL 625 MG TABLET PO SCH (09:00)
[2016-11-06] MEDS: HYDROcodone/APAP 7.5/325MG 1 TAB TABLET PO PRN (11:47)
[2016-11-06] MEDS ORDERED: POLY17PO5 PO (16:29)
[2016-11-06] MEDS ORDERED: CALC625T12 PO (16:29)
[2016-11-06] MEDS ORDERED: Escitalopram PO (16:29)
[2016-11-06] MEDS ORDERED: BENZ1TAB5 PO (16:29)
== END 2016-11-06 17:02 | disposition home or self-care (01) | DRG 885 ==
LOC: LND 11:05
PROVIDERS: ADMIT Family Medicine; ATTEND Family Medicine
DX: F33.41 Major depressive disorder, recurrent, in partial remission (principal); G25.9 Extrapyramidal and movement disorder, unspecified; I69.351 Hemiplegia and hemiparesis following cerebral infarction affecting right dominant side; G20 Parkinson's disease; F41.9 Anxiety disorder, unspecified; I10 Essential (primary) hypertension; R56.9 Unspecified convulsions; M62.81 Muscle weakness (generalized); Z91.81 History of falling
CPT/HCPCS: 73630; 81001; 97110; 97116; 97530; 97535

== ENCOUNTER 2016-12-25 12:07 | Emergency (ER) | payer MEDICARE, OTHER ==
[~2016-12-25 12:07] MED LIST changes: +BENZ1TAB5 PO; +CALC625T12 PO; +Escitalopram PO; +POLY17PO5 PO
[2016-12-25] MEDS: IV NORMAL SALINE 1,000ML 1,000 ML IV SCH (12:40)
--- NOTE | 2016-12-25 12:53 | RAD ---
Portable chest, 12/25/2016: History: Near syncope The heart size and pulmonary vascularity are normal. No pulmonary infiltrates are seen. There is no evidence of pleural fluid. IMPRESSION: No acute cardiopulmonary abnormality is detected.
[2016-12-25 13:15] LABS: BASO % 1 % (0-3); EOS # 0.1 x10^3/uL (0.0-0.7); EOS % 2 % (0-3); HEMOGLOBIN 12.2 g/dL (12.0-15.5); LYMPH # 1.6 x10^3/uL (1.0-4.8); LYMPH % 45 % (24-48); MEAN CORPUSCULAR HEMOGLOBIN 29 pg (25-35); MEAN CORPUSCULAR HGB CONC 32 g/dL (31-37); MEAN CORPUSCULAR VOLUME 92 fL (79-100); MONO # 0.4 x10^3/uL (0.0-1.1); MONO % 12 % (0-9); NEUT # 1.5 x10^3uL (1.8-7.7); NEUT % 40 % (31-73); PLATELET COUNT 191 x10^3/uL (140-400); RED BLOOD COUNT 4.15 x10^6/uL (3.50-5.40); RED CELL DISTRIBUTION WIDTH 13.7 % (11.5-14.5); WHITE BLOOD COUNT 3.6 x10^3/uL (4.0-11.0)
[2016-12-25 13:34] LABS: ALBUMIN 3.6 g/dL (3.4-5.0); CALCIUM 8.8 mg/dL (8.5-10.1); CREATININE 0.7 mg/dL (0.6-1.0); GFR 104.7; POTASSIUM 3.9 mmol/L (3.5-5.1); TOTAL BILIRUBIN 0.1 mg/dL (0.2-1.0); TOTAL PROTEIN 7.2 g/dL (6.4-8.2)
[2016-12-25 14:52] LABS: BILIRUBIN,URINE NEG (NEG); CLARITY,URINE CLEAR; COLOR,URINE YELLOW; GLUCOSE,URINE NEG (NEG); NITRITE,URINE NEG (NEG); RBC,URINE 0 /HPF (0-2); UROBILINOGEN,URINE 0.2 mg/dL (0.2 mg/dL); WBC,URINE OCC /HPF (0-4)
[2016-12-25 14:53] LABS: BACTERIA,URINE 0 /HPF (0-FEW); SQUAMOUS EPITHELIAL CELL,UR OCC /LPF
[2016-12-25 16:33] VITALS: BP 119/76
--- NOTE | 2016-12-25 16:56 | EKG ---
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
--- NOTE | 2016-12-25 17:08 | PHYS DOC ---
Past History Past Medical History: No Pertinent History Past Surgical History: No Surgical History Smoking: Non-smoker Alcohol Use: None Drug Use: None Adult General Chief Complaint Chief Complaint: DIZZY/LIGHT HEADED HPI HPI Patient is a [age] year old [sex] who presents with [] Review of Systems Review of Systems Constitutional: Denies fever or chills [] Eyes: Denies change in visual acuity, redness, or eye pain [] HENT: Denies nasal congestion or sore throat [] Respiratory: Denies cough or shortness of breath [] Cardiovascular: No additional information not addressed in HPI [] GI: Denies abdominal pain, nausea, vomiting, bloody stools or diarrhea [] : Denies dysuria or hematuria [] Musculoskeletal: Denies back pain or joint pain [] Integument: Denies rash or skin lesions [] Neurologic: Denies headache, focal weakness or sensory changes [] Endocrine: Denies polyuria or polydipsia [] Current Medications Current Medications Current Medications Medications (Trade) Dose Ordered Sig/Catie Start Time Stop Time Status Last Admin Dose Admin Sodium Chloride 1,000 ml @ 100 mls/hr Q10H 12/25/16 12:40 12/25/16 22:39 12/25/16 12:40 100 MLS/HR Allergies Allergies Allergies Coded Allergies Type Severity Reaction Last Updated Verified No Known Drug Allergies 07/26/13 No Physical Exam Physical Exam Constitutional: Well developed, well nourished, no acute distress, non-toxic appearance. [] HENT: Normocephalic, atraumatic, bilateral external ears normal, oropharynx moist, no oral exudates, nose normal. [] Eyes: PERRLA, EOMI, conjunctiva normal, no discharge. [] Neck: Normal range of motion, no tenderness, supple, no stridor. [] Cardiovascular:Heart rate regular rhythm, no murmur [] Lungs & Thorax: Bilateral breath sounds clear to auscultation [] Abdomen: Bowel sounds normal, soft, no tenderness, no masses, no pulsatile masses. [] Skin: Warm, dry, no erythema, no rash. [] Back: No tenderness, no CVA tenderness. [] Extremities: No tenderness, no cyanosis, no clubbing, ROM intact, no edema. [] Neurologic: Alert and oriented X 3, normal motor function, normal sensory function, no focal deficits noted. [] Psychologic: Affect normal, judgement normal, mood normal. [] Current Patient Data Vital Signs Vital Signs Date Time Temp Pulse Resp B/P (MAP) Pulse Ox O2 Delivery O2 Flow Rate FiO2 12/25/16 16:33 76 18 119/76 (90) 96 Room Air 12/25/16 12:07 98.6 Lab Results Laboratory Tests Test 12/25/16 13:00 12/25/16 14:28 White Blood Count 3.6 x10^3/uL (4.0-11.0) L Red Blood Count 4.15 x10^6/uL (3.50-5.40) Hemoglobin 12.2 g/dL (12.0-15.5) Hematocrit 38.0 % (36.0-47.0) Mean Corpuscular Volume 92 fL (79-100) Mean Corpuscular Hemoglobin 29 pg (25-35) Mean Corpuscular Hemoglobin Concent 32 g/dL (31-37) Red Cell Distribution Width 13.7 % (11.5-14.5) Platelet Count 191 x10^3/uL (140-400) Neutrophils (%) (Auto) 40 % (31-73) Lymphocytes (%) (Auto) 45 % (24-48) Monocytes (%) (Auto) 12 % (0-9) H Eosinophils (%) (Auto) 2 % (0-3) Basophils (%) (Auto) 1 % (0-3) Neutrophils # (Auto) 1.5 x10^3uL (1.8-7.7) L Lymphocytes # (Auto) 1.6 x10^3/uL (1.0-4.8) Monocytes # (Auto) 0.4 x10^3/uL (0.0-1.1) Eosinophils # (Auto) 0.1 x10^3/uL (0.0-0.7) Basophils # (Auto) 0.0 x10^3/uL (0.0-0.2) Sodium Level 141 mmol/L (136-145) Potassium Level 3.9 mmol/L (3.5-5.1) Chloride Level 105 mmol/L (98-107) Carbon Dioxide Level 31 mmol/L (21-32) Anion Gap 5 (6-14) L Blood Urea Nitrogen 12 mg/dL (7-20) Creatinine 0.7 mg/dL (0.6-1.0) Estimated GFR (Cockcroft-Gault) 104.7 BUN/Creatinine Ratio 17 (6-20) Glucose Level 111 mg/dL (70-99) H Calcium Level 8.8 mg/dL (8.5-10.1) Total Bilirubin 0.1 mg/dL (0.2-1.0) L Aspartate Amino Transferase (AST) 19 U/L (15-37) Alanine Aminotransferase (ALT) 21 U/L (14-59) Alkaline Phosphatase 206 U/L (46-116) H Troponin I Quantitative < 0.017 ng/mL (0-0.055) Total Protein 7.2 g/dL (6.4-8.2) Albumin 3.6 g/dL (3.4-5.0) Albumin/Globulin Ratio 1.0 (1.0-1.7) Urine Collection Type Unknown Urine Color Yellow Urine Clarity Clear Urine pH 7.0 Urine Specific [place] 1.015 Urine Protein Neg (NEG-TRACE) Urine Glucose (UA) Neg mg/dL (NEG) Urine Ketones (Stick) Neg mg/dL (NEG) Urine Blood Neg (NEG) Urine Nitrite Neg (NEG) Urine Bilirubin Neg (NEG) Urine Urobilinogen Dipstick 0.2 mg/dL (0.2 mg/dL) Urine Leukocyte Esterase Neg (NEG) Urine RBC 0 /HPF (0-2) Urine WBC Occ /HPF (0-4) Urine Squamous Epithelial Cells Occ /LPF Urine Bacteria 0 /HPF (0-FEW) EKG EKG [] Radiology/Procedures Radiology/Procedures [] Course & Med Decision Making Course & Med Decision Making Pertinent Labs and Imaging studies reviewed. (See chart for details) [] Dragon Disclaimer Dragon Disclaimer This chart was dictated in whole or in part using Voice Recognition software in a busy, high-work load, and often noisy Emergency Department environment. It may contain unintended and wholly unrecognized errors or omissions. Departure Departure: Impression: Primary Impression: Near syncope Additional Impressions: Autonomic instability Vasovagal episode Disposition: HOME, SELF-CARE Condition: IMPROVED Referrals: TERELL ADAME MD (PCP) Patient Instructions: Syncope Additional Instructions: A very full workup of your lightheadedness today has yielded reassuring results. Her EKG shows no arrhythmia or abnormal heart rhythm which would have been a cause of your symptoms. Chest x-ray well as your laboratory results were all unremarkable as well. As you feel well and your emulating without difficulty after IV fluid hydration it seems that this is an episode typical for you and consistent with your previous similar episodes since your brain injury. Your case was discussed with her primary care doctor Dr. Palumbo this afternoon. He is aware of your history today and the findings in our emergency department and recommends follow-up in his office as soon as possible. Call in the morning for an appointment. The mindful that you have a predisposition for lightheadedness and nearly fainting and be careful if you start to get similar symptoms suggestive of these events may be evolving. Drink plenty of fluids and be sure to stay well hydrated and Return immediately for new severe or worsening symptoms. Problem Qualifiers SALENA AGUIRRE MD Dec 25, 2016 17:08
== END 2016-12-25 17:18 | disposition home or self-care (01) ==
LOC: ER 12:07
DX: R55 Syncope and collapse (principal); G90.8 Other disorders of autonomic nervous system
CPT/HCPCS: 36415; 71010; 80053; 81001; 84484; 85025; 93005; 96360; 99285-25; J7030

== ENCOUNTER 2017-02-12 14:04 | Emergency (ER) | payer MEDICARE, OTHER ==
[2017-02-12 14:20] VITALS: BP 171/70
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
[2017-02-12] MEDS ORDERED: SULF1TAB24 PO (15:08)
[2017-02-12] MEDS ORDERED: HYDR-971 PO (15:08)
== END 2017-02-12 15:15 | disposition home or self-care (01) ==
LOC: ER 14:04
DX: L03.116 Cellulitis of left lower limb (principal)
CPT/HCPCS: 99284